=== PATIENT | female | born 1970 | race Caucasian/White ===

== ENCOUNTER 2018-03-30 08:55 | Day surgery (SDC) | payer OTHER | END 2018-03-30 17:00 | disposition home or self-care (01) | LOC: CIR.AMB 08:55 | DX: O03.4 Incomplete spontaneous abortion without complication (principal) ==

== ENCOUNTER → 2018-03-30 | Emergency (ER) | payer OTHER ==
[~2018-03-30] VITALS: Ht 162.6 cm; Wt 61.7 kg
[~2018-03-30] MED LIST: PRENATAL + DHA1 EAC1
== END | disposition still patient (30) ==
LOC: ER 06:13
DX: O03.4 Incomplete spontaneous abortion without complication (principal)

== ENCOUNTER 2019-06-16 12:55 | Emergency (ER) | payer OTHER ==
[~2019-06-16] VITALS: Ht 152.4 cm; Wt 59.0 kg
[2019-06-16] MEDS ORDERED: AMOXICILLI125 MG/5 M (13:29)
[2019-06-16] MEDS ORDERED: CLEOCIN HCL300 MG PO (17:27)
[2019-06-16] MEDS ORDERED: INTESTINEX680 M1 PO (17:27)
== END 2019-06-16 17:35 ==
LOC: ER 12:55
DX: L02.415 Cutaneous abscess of right lower limb (principal)

== ENCOUNTER 2019-07-01 21:31 | Emergency (ER) | payer OTHER ==
[~2019-07-01] VITALS: Ht 162.6 cm; Wt 59.0 kg
[~2019-07-01 21:31] MED LIST changes: +AMOXICILLI125 MG/5 M; +CLEOCIN HCL300 MG PO; +INTESTINEX680 M1 PO
== END 2019-07-02 02:56 | disposition home or self-care (01) ==
LOC: ER 21:31
DX: L02.415 Cutaneous abscess of right lower limb (principal); L03.115 Cellulitis of right lower limb